=== PATIENT | male | born 1980 | race Caucasian/White ===

== ENCOUNTER 2021-08-30 04:15 | Inpatient (IN) ==
[2021-08-30] MEDS ORDERED: ONDANSETRON INJ 2 MG/ML 2 ML VIAL IV STA (04:47)
[2021-08-30] MEDS ORDERED: MoRPHine SULFATE 10 MG/ML CARP/VIAL IV STA (04:47)
--- NOTE | 2021-08-30 04:53 | Emergency Department Note ---
Impression & Plan Gallstone (impacted) ED Provider Note Name: ELHAM MAYFIELD Age: 41 Sex: M Arrives Via: Walk-In Informant: Patient ED Provider: Kevan Cisneros MD Chief Complaint: RUQ pain Impression: Impacted [facility] Medical Decision Makin yr old healthy male with acute RUQ pain in setting of known gallstones. Quite uncomfortable on arrival and with RUQ TTP. Labs unremarkable. Multiple rounds IV pain meds for management. US with gallstone stuck in neck. Not septic, LFTs stable. Triage/Nursing Notes reviewed by Me Differentials:Appendicitis, infections, diverticulitis, UTI, obstruction, mesenteric ischemia, aortic pathology, inflammatory bowel disease, renal colic, PUD, pancreatitis, biliary pathology, hernia, volvulus, constipation, as well as other pathologies. Vital Signs: reviewed and remarkable for no significant abnormalities Interventions: saline lock, nss bolus, dilaudid iv x 2, morphine iv, mefoxin iv Labs:Reviewed and remarkable for no significant abnormalities Imaging:Radiologist interpretation reviewed by me: immobile stone in gallbladder neck Consults:Dr Hanley Gen Surg Plan: Disposition: To OR Condition: Good History of Present Illness:41 yr old male arrives for evaluation of abdominal pain. Patient with several hours of right upper abdominal pain. Radiation to right scapula. Associated nausea and vomiting. No fevers, chills, nor other symptoms. States known gallstones though no pain like this previously. Motrin taken without improvement. Nothing makes better nor worse. No trauma nor injuries. No previous surgeries. ROS: See above HPI for pertinent positives & negatives. A total of 10 systems reviewed and were otherwise negative. Past Medical History:Gallstones Past Surgical History:none Family History:Both parents with gallbladders removed Social History:No etoh, drugs nor tobacco. 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 EYES: No scleral icterus, unremarkable pupils. ENT: Mucous membranes moist, no nasal congestion. NECK: No masses appreciated, nomeningismus, trachea is midline. RESPIRATORY: No dyspnea. Clear to auscultation and equal bilaterally. No wheeze, no rhonchi. CARDIOVASCULAR: Regular rate and rhythm.No murmurs, rubs, gallops appreciated. GASTROINTESTINAL: RUQ TTP, Abdomen soft, non-tender, no peritonitis.Bowel sounds positive.No masses appreciated. BACK: No midline tenderness, no CVA tenderness EXTREMITIES: Normal motion all extremities, no cyanosis, no edema. NEUROLOGIC: Alert and oriented, no acute motor or sensory deficits, no focal weakness, cranial nerves grossly intact. SKIN: No rash, no jaundice, no diaphoresis. PSYCH: Appropriate GCS: 15 ED Course: Times/Reassessments: gradually improving pain Kevan Cisneros MD Past Med/Surg History Surgical History (Updated 08/31/21 @ 11:31 by Janna Brown RN) History of repair of anterior cruciate ligament of right knee Hx laparoscopic cholecystectomy (08/30/21) Laparoscopic Cholecystectomy with cholangiogram Dr. 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 Other Information That Helps Us Care for You: No Feels Safe at Home: No Is there a partner from a previous relationship who is making you feel unsafe now?: No Any Concerns about Your Family Situation: No Wo uld You Like to Speak to Someone About Your Situation: No Safety Concerns: Feels Safe At This Time Assistive Devices: None Allergies Allergies Allergy/AdvReac Type Severity Reaction Status Date / Time No Known Drug Allergies Allergy Verified 01/22/21 13:21 Home Meds Home Medications Medication Instructions Recorded Confirmed loratadine 10 mg tablet (Claritin) 10 mg PO HS 12/11/20 08/30/21 Previous Rx's Medication Instructions Recorded oxycodone-acetaminophen 5 mg-325 1 - 2 tab PO Q4H PRN #12 tab 08/31/21 mg tablet (Percocet) Results & Data (ED) Vital Signs Vital Signs - 24 hr 08/30/21 04:17 08/30/21 06:45 08/30/21 07:28 Temperature 36.0 C L Temperature Source Temporal Artery Scan Pulse Rate 69 Pulse Rate [Apical] Respiratory Rate 18 16 Respiratory Effort / Characteristics Non-Labored Spontaneous Respiratory Depth Normal Normal Blood Pressure 147/78 H Blood Pressure [Left Arm] 150/74 H Blood Pressure Mean 101 Blood Pressure Mean [Left Arm] 99 Pulse Oximetry 97 98 98 Oxygen Delivery Method Room Air Room Air Room Air Sepsis Recent Fever Within 48 Hours No Sepsis New/Unexplained Change in Mental Status N/A Sepsis Action Taken by Nursing No Action Required 08/30/21 07:29 Temperature Temperature Source Pulse Rate Pulse Rate [Apical] 97 H Respiratory Rate 22 Respiratory Effort / Characteristics Respiratory Depth Blood Pressure Blood Pressure [Left Arm] 134/90 Blood Pressure Mean Blood Pressure Mean [Left Arm] 104 Pulse Oximetry 96 Oxygen Delivery Method Room Air Sepsis Recent Fever Within 48 Hours Sepsis New/Unexplained Change in Mental Status Sepsis Action Taken by Nursing Laboratory Data Result diagrams: 08/30/21 05:09 08/30/21 05:09 Lab Results 08/30/21 08/30/21 08/30/21 Range/Units 05:09 05:09 07:04 WBC 10.09 (4.8-10.8) K/uL RBC 5.12 (4.7-6.1) M/uL Hgb 15.8 (14.0-18.0) g/dL Hct 44.5 (42-52) % MCV 86.9 (80-100) fL MCH 30.9 (25-34) pg MCHC 35.5 (32-36) g/dL RDW Std Deviation 42.0 (36.4-46.3) fL RDW Coeff of Alvaro 13.1 (11.5-14.5) % Plt Count 296 (130-400) K/uL MPV 10.0 (7.4-10.4) fL Immature Gran % (Auto) 0.2 % Neut % (Auto) 83.7 % Lymph % (Auto) 11.3 % [place] % (Auto) 4.0 % Eos % (Auto) 0.7 % Baso % (Auto) 0.1 % Neut # (Auto) 8.45 H (1.4-6.5) K/uL Lymph # (Auto) 1.14 L (1.2-3.4) K/uL [place] # (Auto) 0.40 (0.11-0.59) K/uL Eos # (Auto) 0.07 (0-0.5) K/uL Baso # (Auto) 0.01 (0-0.2) K/uL Immature Gran # (Auto) 0.02 (0.00-0.02) K/uL Sodium 139 (136-145) mmol/L Potassium 4.1 (3.5-5.1) mmol/L Chloride 106 (98-107) mmol/L Carbon Dioxide 27 (21-32) mmol/L Anion Gap 6.0 (3-11) BUN 19 H (7-18) mg/dl Creatinine 1.14 (0.6-1.4) mg/dl Est Cr Clr Drug Dosing 86.8 ml/min Est GFR ( Amer) 93.4 ml/min Est GFR (Non-Af Amer) 80.6 ml/min BUN/Creatinine Ratio 17.0 (10-20) Glucose 135 H (70-99) mg/dl Calcium 9.4 (8.5-10.1) mg/dl Total Bilirubin 0.7 (0.2-1) mg/dl Direct Bilirubin 0.1 (0-0.2) mg/dl AST 18 (15-37) U/L ALT 38 (12-78) U/L Alkaline Phosphatase 79 (45-117) U/L Total Protein 8.1 (6.4-8.2) gm/dl Albumin 4.0 (3.4-5.0) gm/dl Lipase 238 (73-393) U/L Urine Color Yellow Urine Appearance Clear (Clear) Urine pH 5.0 (4.5-7.5) Ur Specific [place] 1.028 (1.000-1.030) Urine Protein Negative (Negative) Urine Glucose (UA) Negative (Negative) Urine Ketones Trace H (Negative) Urine Blood Negative (Negative) Urine Nitrite Negative (Negative) Urine Bilirubin Negative (Negative) Urine Urobilinogen Negative (Negative) Ur Leukocyte Esterase Negative (Negative) COVID-19 Eval Order SARS-CoV-2 (PCR) (Negative) 08/30/21 08/30/21 Range/Units 07:20 07:20 WBC (4.8-10.8) K/uL RBC (4.7-6.1) M/uL Hgb (14.0-18.0) g/dL Hct (42-52) % MCV (80-100) fL MCH (25-34) pg MCHC (32-36) g/dL RDW Std Deviation (36.4-46.3) fL RDW Coeff of Alvaro (11.5-14.5) % Plt Count (130-400) K/uL MPV (7.4-10.4) fL Immature Gran % (Auto) % Neut % (Auto) % Lymph % (Auto) % [place] % (Auto) % Eos % (Auto) % Baso % (Auto) % Neut # (Auto) (1.4-6.5) K/uL Lymph # (Auto) (1.2-3.4) K/uL [place] # (Auto) (0.11-0.59) K/uL Eos # (Auto) (0-0.5) K/uL Baso # (Auto) (0-0.2) K/uL Immature Gran # (Auto) (0.00-0.02) K/uL Sodium (136-145) mmol/L Potassium (3.5-5.1) mmol/L Chloride (98-107) mmol/L Carbon Dioxide (21-32) mmol/L Anion Gap (3-11) BUN (7-18) mg/dl Creatinine (0.6-1.4) mg/dl Est Cr Clr Drug Dosing ml/min Est GFR ( Amer) ml/min Est GFR (Non-Af Amer) ml/min BUN/Creatinine Ratio (10-20) Glucose (70-99) mg/dl Calcium (8.5-10.1) mg/dl Total Bilirubin (0.2-1) mg/dl Direct Bilirubin (0-0.2) mg/dl AST (15-37) U/L ALT (12-78) U/L Alkaline Phosphatase (45-117) U/L Total Protein (6.4-8.2) gm/dl Albumin (3.4-5.0) gm/dl Lipase (73-393) U/L Urine Color Urine Appearance (Clear) Urine pH (4.5-7.5) Ur Specific [place] (1.000-1.030) Urine Protein (Negative) Urine Glucose (UA) (Negative) Urine Ketones (Negative) Urine Blood (Negative) Urine Nitrite (Negative) Urine Bilirubin (Negative) Urine Urobilinogen (Negative) Ur Leukocyte Esterase (Negative) COVID-19 Eval Order Covid19 at [facility] SARS-CoV-2 (PCR) NEGATIVE (Negative) Administered Medications Discontinued Medications Fentanyl Citrate (Fentanyl Citrate 100 Mcg/2 Ml Vial) 50 mcg IV Q5M PRN PRN Reason: PACU Use Only-Pain Stop: 08/30/21 16:58 Last Admin: 08/30/21 10:56 Dose: 50 mcg Documented by: [id number] Admin: 08/30/21 10:51 Dose: 50 mcg Documented by: [id number] Hydromorphone HCl (Hydromorphone Inj 1 Mg/Ml Syringe) 1 mg IV NOW STA Stop: 08/30/21 05:44 Last Admin: 08/30/21 06:13 Dose: 1 mg Documented by: [id number] Hydromorphone HCl (Hydromorphone Inj 1 Mg/Ml Syringe) 1 mg IV NOW STA Stop: 08/30/21 07:22 Last Admin: 08/30/21 07:25 Dose: 1 mg Documented by: [id number] Cefoxitin Sodium (Mefoxin) 2,000 mg in 60 mls @ 100 mls/hr IV NOW STA Stop: 08/30/21 08:02 Last Infusion: 08/30/21 08:02 Dose: 0 mls/hr Documented by: [id number] Admin: 08/30/21 07:34 Dose: 100 mls/hr Documented by: [id number] Lactated Ringer's (Lr) 1,000 mls @ 80 mls/hr IV .[id number] Stop: 09/29/21 11:35 Last Admin: 08/30/21 23:27 Dose: 80 mls/hr Documented by: [id number] Infusion: 08/30/21 23:27 Dose: 80 mls/hr Documented by: [id number] Admin: 08/30/21 11:53 Dose: 80 mls/hr Documented by: [id number] Influenza Virus Vaccine Quadrival (Fluarix Quadrivalent 0.5 Ml Syr) 0.5 ml IM .ONCE ONE Stop: 08/30/21 13:32 Last Admin: 08/30/21 15:34 Dose: 0.5 ml Documented by: [id number] Ioversol (Optiray 300) 50 ml IV UD PRN PRN Reason: Interaction Checking Stop: 09/03/21 09:53 Last Admin: 08/30/21 09:55 Dose: 5 ml Documented by: [id number] Lidocaine/Epinephrine (Lidocaine/Epinephrine 1% 20 Ml Vial) Confirm Administered Dose 20 ml .ROUTE .STK-MED ONE Stop: 08/30/21 08:31 Last Admin: 08/30/21 10:10 Dose: 7 ml Documented by: [id number] Morphine Sulfate (Morphine Sulfate 10 Mg/Ml Carp/Vial) 6 mg IV NOW STA Stop: 08/30/21 04:48 Last Admin: 08/30/21 05:12 Dose: 6 mg Documented by: [id number] Morphine Sulfate (Morphine Sulfate 2 Mg/Ml Carp) 2 mg IV Q2HWA PRN PRN Reason: Pain Stop: 09/13/21 11:35 Last Admin: 08/31/21 05:43 Dose: 2 mg Documented by: [id number] Admin: 08/30/21 21:00 Dose: 2 mg Documented by: [id number] Admin: 08/30/21 15:36 Dose: 2 mg Documented by: [id number] Admin: 08/30/21 12:00 Dose: 2 mg Documented by: [id number] Ondansetron HCl (Ondansetron Inj 2 Mg/Ml 2 Ml Vial) 4 mg IV NOW STA Stop: 08/30/21 04:48 Last Admin: 08/30/21 05:12 Dose: 4 mg Documented by: [id number] Oxycodone/Acetaminophen (Oxycodone/Acetaminophen 5mg/325mg Tab) 1 tab PO Q4H PRN PRN Reason: Pain Stop: 09/13/21 11:35 Last Admin: 08/31/21 07:35 Dose: 1 tab Documented by: [id number] Imaging Data Radiologist's Impression: Gallbladder Ultrasound 08/30/21 04:47 US gallbladder CLINICAL INDICATION: MN ^RUQ pain, known gallstones. TECHNIQUE: Multiple real-time sonographic images of the right upper quadrant were obtained. Comparison: None available at the time of this dictation. FINDINGS: The liver is diffusely homogenous with normal contour and echogenicity. No focal mass lesions are seen. No intrahepatic ductal dilatation is seen. Gallstones are seen, one is in the gallbladder neck and is not mobile and the patient moved. The gallbladder wall is nonthickened, measuring 2 mm. There is no pericholecystic fluid present. The common duct measures 4 mm in diameter at the level of the hepatic artery. A sonographic Zimmerman's sign was negative, however patient was medicated for pain just prior to ultrasound. The visualized portions of the pancreas appear normal. The right kidney shows normal echogenicity, cortical thickness and renal contour. The right kidney shows no evidence of hydronephrosis or mass. No ascites or free fluid is seen in Osborne's pouch. IMPRESSION: Immobile stone in the gallbladder neck. The gallbladder wall is not grossly thickened but is minimally edematous in appearance. Sonographic Zimmerman's sign was nondiagnostic due to patient's pain medication. Findings may represent cholelithiasis or early acute cholecystitis. ACT 112: Negative or not required by law. Electronically signed by: Hugh Latif M.D. 08/30/2021 7:50 AM Discharge Plan Visit Data Chief Complaint: Abdominal Pain Stated Complaint: PAIN IN LOWER RIGHT OF RIB CAGE,SHARP BK PAIN ED Provider: Kevan Cisneros Discharge Problem: Gallstone (impacted) Patient Disposition: Admitted As Inpatient Discharge Instructions Interventions: ED Discharge Assessment Last Done: 08/30/21 08:41
[2021-08-30 05:23] LABS: Basophils # (auto) 0.01 K/uL (0-0.2); Basophils % (auto) 0.1 %; Eosinophils # (auto) 0.07 K/uL (0-0.5); Eosinophils % (auto) 0.7 %; Hematocrit (blood only) 44.5 % (42-52); Hemoglobin 15.8 g/dL (14.0-18.0); Immature Granulocytes # (auto) 0.02 K/uL (0.00-0.02); Immature Granulocytes % (auto) 0.2 %; Lymphocytes # (auto) 1.14 K/uL (1.2-3.4); Lymphocytes % (auto) 11.3 %; Mean Corpuscular Hemoglobin 30.9 pg (25-34); Mean Corpuscular Hgb Conc 35.5 g/dL (32-36); Mean Corpuscular Volume 86.9 fL (80-100); Neutrophils # (auto) 8.45 K/uL (1.4-6.5); Neutrophils % (auto) 83.7 %; Platelet Count 296 K/uL (130-400); RDW Coefficient of Variation 13.1 % (11.5-14.5); Red Blood Count 5.12 M/uL (4.7-6.1); White Blood Count 10.09 K/uL (4.8-10.8)
[2021-08-30 05:39] LABS: Bilirubin Direct 0.1 mg/dl (0-0.2); Calcium 9.4 mg/dl (8.5-10.1); Creatinine Clr Calc Pharmacy 86.8 ml/min; Est GFR (African American) 93.4 ml/min; Est GFR (Non-African American) 80.6 ml/min; Potassium 4.1 mmol/L (3.5-5.1)
[2021-08-30 05:42] LABS: Bilirubin,Total 0.7 mg/dl (0.2-1); Total Protein 8.1 gm/dl (6.4-8.2)
[2021-08-30] MEDS ORDERED: HYDROmorphone INJ 1 MG/ML SYRINGE IV STA ×2 (05:43→07:21)
[2021-08-30 07:20] LABS: Appearance Urine Clear (Clear); Bilirubin Urine Negative (Negative); Blood Urine Negative (Negative); Color Urine Yellow; Glucose Urine UA Negative (Negative); Ketones Urine Trace (Negative); Leukocyte Esterase Urine Negative (Negative); Nitrite Urine Negative (Negative); Protein Urine Negative (Negative); Specific Gravity Urine 1.028 (1.000-1.030); Urobilinogen Urine Negative (Negative)
[2021-08-30] MEDS ORDERED: HYDROmorphone INJ 0.5 MG/0.5 ML SYR IV PRN (07:22)
[2021-08-30] MEDS ORDERED: cefOXitin 2,000 MG/60 ML BAG IV STA (07:27)
--- NOTE | 2021-08-30 07:51 | Ultrasound Report ---
US gallbladder CLINICAL INDICATION: MN ^RUQ pain, known gallstones. TECHNIQUE: Multiple real-time sonographic images of the right upper quadrant were obtained. Comparison: None available at the time of this dictation. FINDINGS: The liver is diffusely homogenous with normal contour and echogenicity. No focal mass lesions are se en. No intrahepatic ductal dilatation is seen. Gallstones are seen, one is in the gallbladder nec k and is not mobile and the patient moved. The gallbladder wall is nonthickened, measuring 2 mm. Ther e is no pericholecystic fluid present. The common duct measures 4 mm in diameter at the level of the hepatic artery. A sonographic Zimmerman's sign was negative, however patient was medicated for pain jus t prior to ultrasound. The visualized portions of the pancreas appear normal. The right kidney shows normal echogenicity, cortical thickness and renal contour. The right kidney sh ows no evidence of hydronephrosis or mass. No ascites or free fluid is seen in Osborne's pouch. IMPRESSION: Immobile stone in the gallbladder neck. The gallbladder wall is not grossly thickened but is minimall y edematous in appearance. Sonographic Zimmerman's sign was nondiagnostic due to patient's pain medicati on. Findings may represent cholelithiasis or early acute cholecystitis. ACT 112: Negative or not required by law. Electronically signed by: Hugh Latif M.D. 08/30/2021 7:50 AM
--- NOTE | 2021-08-30 08:25 | History & Physical Report ---
Date of Service August 30, 2021 Assessment & Plan (1) Gallstone (impacted): Plan: Pathophysiology of gallbladder problems discussed with the patient include indication for surgery timing of the surgery anticipated recovery time and he would like to proceed with surgery on this admission the pain is quite significant relations with the ones he had in the past Risk and complications of surgery were explained to the patient including bleeding infection converting to an open procedure injury to other organs and he would like to proceed accordingly Surgeries been called permit has been signed antibiotics started by the ER physician History of Present Illness Chief Complaint: Abdominal pain quite significant right side of the belly that started around 1130 last evening Primary Care Provider: Christiana Kerr, DO This very pleasant 41-year-old gentleman known to have cholelithiasis somewhat symptomatic in the past and the surgery due to the Covid situation last evening experienced significant right upper quadrant pain likely after eating a hamburger He states that he has had some discomfort in the right side of the belly at times in the past but never this significant Allergies Allergy/AdvReac Type Severity Reaction Status Date / Time No Known Drug Allergies Allergy Verified 01/22/21 13:21 Home Medications Medication Instructions Recorded Confirmed Type loratadine 10 mg tablet (Claritin) 10 mg PO HS 12/11/20 08/30/21 History Past Med/Surg History Surgical History History of repair of anterior cruciate ligament of right knee Social History Smoking Status: Never smoker Hx Alcohol Use: No Hx Substance Use: No Preferred Language: Ethiopian marital status: Single 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 Feels Safe at Home: Yes Physical Exam Physical Exam: Patient is alert present time no distress that he lays flat on the bed in the emergency room since this alleviates some of the discomfort he has had Constitutional: WD/WN, vitals as above Eyes: Sclera nonicteric Neck: No stiffness no masses thyroid not palpable trachea midline Respiratory: No respiratory issues Cardiovascular: Rate/Rhythm: regular rate Gastrointestinal (Abdomen): Abdomen soft guarding some pressure on deep palpation gallbladder area Results & Data Results & Data ([facility]) Vital Signs (Past 12 Hours) Vital Signs Temp Pulse Pulse Resp BP BP Pulse Ox 08/30/21 08:00 94 H 18 143/91 H 97 08/30/21 07:29 97 H 22 134/90 96 08/30/21 07:28 98 08/30/21 06:45 16 150/74 H 98 08/30/21 04:17 36.0 C L 69 18 147/78 H 97 Laboratory Results White count noted left shift Diagnostic Findings And previous known cholelithiasis dated January 2021 the most recent ultrasound not officially read yet according to the ER physician may take 4 hours to get an official reading my review of the ultrasound of a small embedded in the neck of the gallbladder PG Care Time/CCT Total # of Minutes Spent Total Time Spent with Patient: Total time spent is greater than 50% in coordination of care (as documented) at patient's floor/unit and/or counseling patient: Coding Level of Care Code 45602 Initial Inpt Care Lvl 2 Diagnoses Gallstone (impacted) K80.20
[2021-08-30] MEDS ORDERED: LIDOCAINE 2% 2 ML VIAL/AMP(20MG/ML) INFIL ONE (08:26)
[2021-08-30] MEDS ORDERED: ONDANSETRON INJ 2 MG/ML 2 ML VIAL ONE (08:26)
[2021-08-30] MEDS ORDERED: DEXAMETHASONE SOD INJ 4 MG/ML VIAL ONE (08:26)
[2021-08-30] MEDS ORDERED: NEOSTIGMINE METHYLSULFATE 1 MG/ML 10ML VIAL ONE (08:26)
[2021-08-30] MEDS ORDERED: PROPOFOL IV EMULSION 10 MG/ML 20 ML VIAL IV ONE (08:26)
[2021-08-30] MEDS ORDERED: GLYCOPYRROLATE 0.2 MG/ML VIAL ONE (08:26)
[2021-08-30] MEDS ORDERED: MIDAZOLAM HCL 1 MG/ML 2ML VIAL ONE (08:26)
[2021-08-30] MEDS ORDERED: fentaNYL citrate 100 MCG/2 ML VIAL ONE ×3 (08:27→10:51)
[2021-08-30] MEDS ORDERED: LIDOCAINE/EPINEPHRINE 1% 20 ML VIAL ONE (08:30)
[2021-08-30] MEDS ORDERED: ACETAMINOPHEN 1000 MG/100 ML IV IV ONE (08:36)
[2021-08-30] MEDS ORDERED: SUGAMMADEX SODIUM 200 MG/2 ML VIAL IV ONE (08:36)
[2021-08-30] MEDS ORDERED: ePHEDrine sulfate 50 MG/ML AMP IV PRN (08:58)
[2021-08-30] MEDS ORDERED: ATROPINE SULFATE 0.1 MG/ML 10ML SYR IV PRN (08:58)
[2021-08-30] MEDS ORDERED: ONDANSETRON INJ 2 MG/ML 2 ML VIAL IV PRN ×2 (08:58→11:36)
--- NOTE | 2021-08-30 08:58 | Anesthesiology Consultation ---
Date of Service August 30, 2021 Assessment & Plan (1) Encounter for pre-operative examination: Chart Review Chart Review: Acceptable Risk for Surgery Consults Requested none ASA ASA2 Proposed Anesthesia Anesthesia Type: General Risk / Benefits Reviewed With: PT / POA / Parent / Guardian, Accepts Plan and Informed Consent Obtained History Surgery Operation Date: 08/30/21 08:10 Proposed Procedures p Laparoscopic Cholecystectomy with cholangiogram - Jeanmarie Hanley MD, FACS Height/Weight Height: 5 ft 6 in Weight: 80.7 kg Allergies Allergy/AdvReac Type Severity Reaction Status Date / Time No Known Drug Allergies Allergy Verified 01/22/21 13:21 Medications Home Medications Medication Instructions Recorded Confirmed Last Taken loratadine 10 mg tablet (Claritin) 10 mg PO HS 12/11/20 08/30/21 08/29/21 19:00 NPO Date Last Intake of Fluids: 08/29/21 Time Last Intake of Fluids: 23:30 Date Last Intake of Solids: 08/30/21 Time Last Intake of Solids: 23:30 Exercise / Class Metabolic Activity II 4-5 Yardwork/Stairs/Walk up hill Past Surgical History Surgical History History of repair of anterior cruciate ligament of right knee Past Anesthesia History No Hx of Anesthesia Complications and No Family Hx of Anesthesia Complications History of PONV No Hx of PONV and No Hx of Motion Sickness Social History Smoking Status: Never smoker Hx Alcohol Use: No Hx Substance Use: No Physical Exam Vital Signs Last Vital Signs Temp 96.8 F L 08/30/21 04:17 Pulse 91 H 08/30/21 08:40 Resp 16 08/30/21 08:40 BP 124/84 08/30/21 08:40 Pulse Ox 95 08/30/21 08:40 ENMT Mouth: no dentition abnormality Thyromental Distance: > or= 3.5 Finger Breadths Mallampati Class: III Neck normal visual inspection Respiratory normal respiratory effort Auscultation: lungs clear to auscultation bilaterally Cardiovascular Rate/Rhythm: regular rate and regular rhythm Testing Laboratory Results 08/30/21 05:09 08/30/21 05:09 Urine Color Yellow 08/30/21 07:04 Urine Appearance Clear (Clear) 08/30/21 07:04 Urine pH 5.0 (4.5-7.5) 08/30/21 07:04 Ur Specific [place] 1.028 (1.000-1.030) 08/30/21 07:04 Urine Protein Negative (Negative) 08/30/21 07:04 Urine Glucose (UA) Negative (Negative) 08/30/21 07:04 Urine Ketones Trace (Negative) H 08/30/21 07:04 Urine Nitrite Negative (Negative) 08/30/21 07:04 Ur Leukocyte Esterase Negative (Negative) 08/30/21 07:04
[2021-08-30] MEDS ORDERED: OPTIRAY 300 IV PRN (09:54)
--- NOTE | 2021-08-30 10:17 | Post Operative Brief Note ---
PG Immediate Post Op with CF Date of Surgery August 30, 2021 Pre & Post Diagnosis Operation Date: 08/30/21 08:10 Pre-Op Diagnosis: Acute cholecystitis Post-Op Diagnosis: Acute cholecystitis I identified the patient and participated in the time-out.: Yes Procedure Operation Date: 08/30/21 08:10 Actual Procedures p Laparoscopic Cholecystectomy with cholangiogram(Not Applicable) - Jeanmarie Hanley MD, FACS Surgeon Jeanmarie Hanley MD, FACS Press Tender [employer] Goods 0 Estimated Blood Loss 5 Findings Consistent with Post-Op Diagnosis Specimens Specimen Description: A. gallbladder
--- NOTE | 2021-08-30 10:18 | Fluoroscopy Report ---
INTRAOPERATIVE CHOLANGIOGRAM HISTORY: Post cholecystectomy. FLUOROSCOPY TIME: 2.4 seconds. 2 fluoroscopic spot images submitted. FINDINGS: Fluoroscopy was provided for an intraoperative cholangiogram status post cholecystectomy. C ontrast was injected through the cystic duct remnant. The common bile duct is normal in course and ca liber. There are no filling defects seen within the common bile duct to suggest a retained stone. Co ntrast extends into the small bowel. There is no intrahepatic bile duct dilatation. IMPRESSION: Fluoroscopy provided for an intraoperative cholangiogram status post cholecystectomy. No filling defects within the common bile duct. ACT 112: Negative or not required by law. Electronically signed by: Edmundo Ramos M.D. 08/30/2021 10:17 AM
--- NOTE | 2021-08-30 10:31 | Operative Report ---
Post Operative Report Pre & Post Diagnosis Operation Date: 08/30/21 08:10 Pre-Op Diagnosis: Acute cholecystitis Post-Op Diagnosis: Acute cholecystitis I identified the patient and participated in the time-out.: Yes Procedure Operation Date: 08/30/21 08:10 Actual Procedures p Laparoscopic Cholecystectomy with cholangiogram(Not Applicable) - Jeanmarie Hanley MD, FACS The patient was brought into the operating theater general trach anesthesia the abdomen was prepped byline solution properly draped a timeout was had patient was identified systemic and biotics have been given preoperatively made a small incision supraumbilically sufficient to accommodate a 5 mm trocar we first placed a Veress needle followed by CO2 completed about 12 and 5 mm trocar point of entry spectrin no injury identified at this point we noticed that the camera was noticed detail this we should have been seen and effectively throughout the procedure we were unable to correct the resolution of this camera even changing the camera and like cord finding on direct visualization we placed a 5 mm epigastric trocar and 2 5 mm subcostal port with preemptive local analgesic patient was placed in reverse Trendelenburg position rotated to the left adhesions of the gallbladder were identified and most encased by the omentum these were fine adhesions we elevated the gallbladder over a grasper was quite tense therefore we aspirated through an aspirating needle so that we have more of a purchase and then we started taken down adhesions to the gallbladder which were significant most of them could be able to be stripped the wall the gallbladder was quite thickened and edematous we worked our way to the neck of the gallbladder we were able to create a window around the cystic duct at its takeoff from the gallbladder 5 mm clip was placed at its takeoff small opening cystic duct was made #4 urethral catheter transversing abdominal wall was positioned cystic duct where x-rays were taken which showed free flow duodenum no obstruction Cholangiocath was then removed the cystic duct was secured twice with 5 mm clips the artery singly dissected out and clipped proximally 2 clips once distally and divided as stated the significant edema from the gallbladder was appreciated therefore the dissection and leaving the posterior wall mostly was done by blunt dissection. The gallbladder was removed from the liver placed in an Endopouch and taken out intact through the epigastric port we did open the gallbladder and it look like that had some areas of grayish thing possibly some patchy necrosis of the wall. Subhepatic suprahepatic area was then checked hemostasis appear satisfactory we placed the camera right upper quadrant port to visualize the initial opening the umbilical area when we went with close technique to enter the abdomen no adhesions were appreciated there in the subhepatic suprahepatic area the trochars were taken out on direct visualization with no bleeding last umbilical trocar wounds were closed with 4-0 Monocryl Steri-Strips applied procedure was tolerated well by the patient estimate blood loss 5 cc Per patient request I spoke to his girlfriend Breanna at [phone] Surgeon Jeanmarie Hanley MD, FACS Hand Sign Writer 0 Estimated Blood Loss 5 Findings Consistent with Post-Op Diagnosis Acute on chronic cholecystitis cholelithiasis Specimens Gallbladder and contents Complications No complications the camera quality was very poor unable to really corrected we asked the density report be filed Description of Procedure merda I attest to the content of the Intraoperative Record and any orders documented therein. Any exceptions are noted below.
[2021-08-30] MEDS: fentaNYL citrate 100 MCG/2 ML VIAL IV PRN ×2 (10:51→10:56)
--- NOTE | 2021-08-30 10:55 | Anesthesiology Progress Note ---
Date of Service August 30, 2021 Anesthesia Post Procedure Vital Signs Vital Signs: Temp Pulse Pulse Resp BP BP BP 08/30/21 10:45 75 10 L 155/88 H 08/30/21 10:35 86 13 120/77 08/30/21 10:29 97.3 F L 78 12 125/76 08/30/21 08:40 91 H 16 124/84 08/30/21 08:00 94 H 18 143/91 H 08/30/21 07:29 97 H 22 134/90 08/30/21 07:28 08/30/21 06:45 16 150/74 H 08/30/21 04:17 96.8 F L 69 18 147/78 H Pulse Ox 08/30/21 10:45 99 08/30/21 10:35 99 08/30/21 10:29 98 08/30/21 08:40 95 08/30/21 08:00 97 08/30/21 07:29 96 08/30/21 07:28 98 08/30/21 06:45 98 08/30/21 04:17 97 Pain Intensity Abdomen: Pain Intensity: 2 Transfer of Care Handoff Completed per policy Notes Mental Status: alert / awake / arousable and participated in evaluation Patient Amnestic to Procedure: Yes Nausea / Vomiting: adequately controlled Pain: adequately controlled Airway Patency, RR, SpO2: stable & adequate BP & HR: stable & adequate Hydration State: stable & adequate Anesthetic Complications: no major complications apparent and Pt Satisfied with anesthetic care
[2021-08-30] MEDS ORDERED: oxyCODONE/ACETAMINOPHEN 5mg/325mg TAB PO PRN (11:36)
[2021-08-30] MEDS: LACTATED RINGER'S 1,000 ML IV SCH ×2 (11:53→23:27)
[2021-08-30] MEDS: MoRPHine SULFATE 2 MG/ML CARP IV PRN ×3 (12:00→21:00)
[2021-08-30] MEDS ORDERED: FLUARIX QUADRIVALENT 0.5 ML SYR IM ONE (13:31)
[2021-08-31] MEDS: MoRPHine SULFATE 2 MG/ML CARP IV PRN (05:43)
--- NOTE | 2021-08-31 09:48 | Discharge Summary ---
Date of Service August 31, 2021 Admission HPI Per Admitting Provider This very pleasant 41-year-old gentleman known to have cholelithiasis somewhat symptomatic in the past and the surgery due to the Covid situation last evening experienced significant right upper quadrant pain likely after eating a hamburger He states that he has had some discomfort in the right side of the belly at times in the past but never this significant Principal Diagnosis Acute cholecystitis Discharge Exam Constitutional WD/WN, vitals as above Gastrointestinal (Abdomen) Inspection/Auscultation: + abdominal surgical incision (steris intact); abdomen not distended Percussion/Palpation: abdomen soft Discharge Data Allergies Allergy/AdvReac Type Severity Reaction Status Date / Time No Known Drug Allergies Allergy Verified 01/22/21 13:21 Consultations 08/30/21 07:27 ED Decision to Admit Stat Procedures Performed Operation Date: 08/30/21 08:10 Actual Procedures p Laparoscopic Cholecystectomy with cholangiogram(Not Applicable) - Jeanmarie Hanley MD, FACS Ordered Studies 08/30/21 04:47 US gallbladder Stat 08/30/21 08:30 [place] cholangiogram OR Routine Hospital Course (1) Gallstone (impacted): 41 y/o male with known gallstones presented to the ER with abdominal pain. White count was 10,000 and ultrasound showed a stone in the gallbladder neck and wall edema. He was taken to the operating room later that day for laparoscopic cholecystectomy and transferred to the surgical floor for overnight observation. In the morning he was able to advance diet and tolerate oral analgesics. He was stable for discharge home. Total Time Total Time Spent Total Time Spent (In Minutes): 15 Discharge Plan Discharge Items Patient Disposition: Home - Self-Care Reason For Visit: PAIN IN LOWER RIGHT OF RIB CAGE,SHARP BK PAIN Discharge Diagnosis: laparoscopic cholecystectomy Activity: As commented below Lifting: No more than 10 pounds Bathing Comment: ok to shower, leave steri-strips on for about 1 week Driving/Machine Use: Resume 3 days after discharge Non-emergency contact: Surgeon Call non-emergency contact if: you have any medication questions, your pain is not controlled, you have a fever, your temperature is above 101.5 and your wound has increased redness Follow-up/Referrals: Jeanmarie Hanley MD, FACS [Surgeon] - (Please call to make an appt in 1-2 weeks) Christiana Kerr, DO [Primary Care Provider] - Diet: Regular Addtl Attending Provider Instructions: You can take ibuprofen 600 mg every 6 hours as needed instead of or between Percocet Pending Studies at Discharge: No Stand-Alone Forms: My [facility], Smoking Cessation Medications and DC Order Prescriptions: New oxycodone-acetaminophen [Percocet] 5-325 mg tablet 1 - 2 tab PO Q4H PRN (Reason: pain, initial therapy, max 6 daily) Qty: 12 RF: 0 Continued loratadine [Claritin] 10 mg tablet 10 mg PO HS RF: 0 Discharge Orders: Discharge Order (Routine); Ordered 08/31/21 Ordered By: Robby Maldonado Admission Data Admit Date/Time: 08/30/21 11:33 Attending Provider: Jeanmarie Hanley Admit Provider: Jeanmarie Hanley Primary Care Provider: Christiana Kerr Other Providers: Jeanmarie Hanley Coding Level of Care Code D/C DAY MANAGEMENT <30 MINS Diagnoses Gallstone (impacted) K80.20
== END 2021-08-31 11:10 | disposition home or self-care (01) | DRG 419 ==
LOC: ED 04:15 → ASU 08:44 → 3E 11:33